=== PATIENT | male | born 1980 | race Caucasian/White ===

== ENCOUNTER 2021-02-25 10:40 | Emergency (ER) | payer OTHER, SELFPAY ==
[2021-02-25 12:04] VITALS: BP 114/64; PULSE 85; RESP 18; TEMP 36.6; BMI 25.0
--- NOTE | 2021-02-25 14:11 | ED.GENADULT ---
HPI - General Adult General Chief complaint: Wound/Laceration Stated complaint: Abcess Time Seen by Provider: 02/25/21 13:39 Source: patient Mode of arrival: ambulatory Limitations: no limitations History of Present Illness HPI narrative: 40-year-old male who presents emergency department for evaluation of an abscess to his left forearm. The patient uses injection heroin/cocaine. He states that he injects 100 bags per day. He states that he has been having difficulty finding vein and will use that he has been missing and injecting under his skin. The patient is concerned that he has an abscess to his left forearm. He also has multiple areas on his arms that are hard and painful. He states that he is feeling fatigued. He denied fever, chills, nausea, vomiting, chest pain or shortness of breath. Patient states these had able to take oral antibiotics for his skin infections in the past. He also states that he was admitted 1 time in the past for a skin infection. Related Data Previous Rx's Medication Instructions Recorded cefadroxil 1 gram tablet 1,000 mg PO BID 7 Days #14 tab 02/25/21 doxycycline hyclate 100 mg tablet 100 mg PO Q12H 7 Days #14 tab 02/25/21 Allergies Allergy/AdvReac Type Severity Reaction Status Date / Time No Known Allergies Allergy Unverified 04/04/20 15:10 [No Known Allergies*] Review of Systems Review of Systems: Yes all other systems are reviewed and are negative [facility] Past Medical History [facility] Narrative: Past medical history: None. Past surgical history: None. Social history: He does smoke cigarettes, 1/2 pack of cigarettes per day times many years. He denies alcohol use. The patient states that he injects heroin and cocaine daily. He estimates that he injects 100 bags of heroin per day (10 bundles of 10). Medical History Patient denies medical problems Social History Social History Advance Directives: No Advance Directives Information Provided: No Physical Exam Vital Signs: Vital Signs: Last Vital Signs Temp 98 F 02/25/21 12:04 Pulse 85 02/25/21 12:04 Resp 18 02/25/21 12:04 BP 114/64 02/25/21 12:04 Body Mass Index 25.0 Const: Other: Patient is pleasant and cooperative, does not appear to be in distress, when left alone does fall asleep but is easily arousable. HENMT: Head: Yes normal to inspection, Yes normocephalic and Yes atraumatic Ears: external ears normal General nose exam: Normal external nose present Face and sinus: Yes normal facial exam Mouth: Normal oral and palatal mucosa present Throat: Yes posterior oropharynx normal Eyes: General: appearance normal, both eyes and all related structures Pupils: Equal, round and reactive pupils present Neck: Neck: Yes normal visual inspection, Yes no lymphadenopathy, Yes trachea midline and Yes supple Chest: Chest palpation & inspection: normal inspection of the chest and normal palpation of entire chest wall Resp: Effort & Inspection: normal respiratory effort and able to speak in complete sentences Auscultation: clear to auscultation bilaterally Cardio: Rate: regular rate Rhythm: regular rhythm Heart sounds: S1 normal heart sound present, S2 normal heart sound present and no murmurs GI: Inspection: Yes normal to inspection Palpation (GI): Soft to palpation, nontender and no guarding Auscultation: normal bowel sounds : General: Yes no CVA tenderness Back/Spine/Pelvis: Back: no CVA tenderness Skin: Other: The patient has an area erythema with a pustule on the left forearm with a area of erythema measuring approximately 3 x 3 cm, the area is indurated and only slightly flocculence, patient has multiple areas on both arms that are indurated without erythema or increased warmth. General skin exam: no rashes or lesions noted Neuro: Cranial nerves: Yes CN's II-XII intact bilaterally and Yes Equal, round and reactive pupils present Cognition (Neuro): normal cognition Motor exam (neuro): 5/5 motor strength present throughout Extrem: Other: Both left and right extremities appear to be swollen with no significant pitting edema, this may be chronic secondary to loss of venous drainage from his injection use. General: Yes full ROM Psych: Appearance: grossly normal Speech and movement: Normal speech and movement present Affect: normal affect Attitude: cooperative Thought process: Normal thought process present Thought content: Normal thought content present Course Course Course Narrative: 40-year-old male with history of opiate and cocaine use disorder who injects approximately 100 bags of heroin per day who presents emergency department for evaluation of possible abscess to left forearm. Patient denied fever chills. He states he has been feeling fatigued. Physical examination did reveal an area on his left forearm of erythema with increased warmth and a pustule. There is some slight flocculence to this area but it is mainly indurated. He also has multiple areas on both arms that are indurated without any erythema at various injection sites. Patient's vital signs were normal. My impression is that the patient has a small abscess to his left arm and I did discuss the incision and drainage procedure and he agreed. As expected, only a small amount of purulent material was expressed from the incision site and there was a very small abscess cavity. I think that the patient has been skin popping and he has multiple areas that are scarred but not infected. The patient started on doxycycline 100 mg twice a day for 7 days and Duricef 1000 mg twice a day for 7 days. The patient does not want to talk to a crisis counselor about his drug use and is not interested in getting into a maintenance program. The patient will be discharged with a intranasal Narcan rescue package. The patient was given verbal and printed instructions prior to discharge. The patient was advised to follow-up with his PCP in 2 days and to return to the emergency department if his symptoms get worse or if he develops any new symptoms that are concerning to him. Discharge Plan Discharge Clinical Impression: Abscess, Cellulitis of forearm, left, Opiate addiction, Cocaine use disorder Patient Disposition: Home, Self-Care Instructions: Cellulitis (ED), Abscess Incision and Drainage (DC) Additional Instructions: Abscess Discharge Instructions You were treated today for an abscess( collection of pus under the skin). The abscess was cut, the pus was drained out and the abscess and the wound was packed with a piece of gauze packing. Change the outside gauze daily or if it gets soaked through with pus. Try not to pull out the gauze packing when you remove the outside gauze. The gauze packing needs to stay in place for 4 days to help the pus drain out of the abscess. If the gauze packing falls out before 4 days and it DOES NOT need to be replaced. Take Duricef (cefadroxil) 1000 mg pills, one pill 2 times a day for 7 days. This is an antibiotic that will help fight the infection. Take doxycycline 100 mg, 1 pill 2 times a day for 7 days. This is an antibiotic that will help fight infection. Take ibuprofen 200 mg pills, 3 pills every 6 hours as needed for pain. Take Tylenol (acetaminophen) 500 mg pills, 2 pills every 4 to 6 hours as needed for pain. Apply warm compresses or a heating pad on low for 15 minutes 4-6 times a day. This increases the blood flow to the area and helps the healing process. Watch for signs of worsening infection which include fever, increased pain, increased redness or increased swelling, red lines traveling away from the wound. IF you think the infection is getting worse or if you develop any new symptoms that are concerning you, then return to the Emergency Department or follow up with your doctor for a recheck. Please follow up with your doctor in 2 days for a recheck. I am also sending you home with a intranasal Narcan rescue pack. If your wound to continue to use IV heroin then you should make sure that there is someone sober and who is not using drugs that can monitor to you and watch you closely. This person can then administer intranasal Narcan if you pass out and stop breathing. Prescriptions: New doxycycline hyclate 100 mg tablet 100 mg PO Q12H 7 Days Qty: 14 RF: 0 cefadroxil 1 gram tablet 1,000 mg PO BID 7 Days Qty: 14 RF: 0
[2021-02-25] MEDS: cephALEXin 500 MG CAPSULE PO (14:53)
[2021-02-25 15:53] VITALS: BP 96/56; PULSE 55; RESP 16; TEMP 37.1; O2SAT 98
[2021-02-25 15:55] VITALS: BP 109/68
[2021-02-25] MEDS: Naloxone HCl Nasal TAKE HOME 4 MG SPRAY NOSTRILALT (15:56)
== END 2021-02-25 16:14 | disposition home or self-care (01) ==
PROVIDERS: Emergency Provider Emergency Medicine Emergency Medical Services
DX: L02.414 Cutaneous abscess of left upper limb (principal); L03.114 Cellulitis of left upper limb; F11.20 Opioid dependence, uncomplicated; F14.20 Cocaine dependence, uncomplicated
CPT/HCPCS: 10060; 87071; 87147; 87186; 87205; 99284

== ENCOUNTER 2021-10-04 12:16 | Emergency (ER) | payer OTHER, SELFPAY ==
[2021-10-04 12:17] VITALS: BP 119/73; PULSE 109; RESP 18; TEMP 37.2; O2SAT 95; BMI 27.3
--- NOTE | 2021-10-04 12:24 | ED.GENADULT ---
HPI - General Adult General Chief complaint: General Medical Stated complaint: med refill Time Seen by Provider: 10/04/21 12:24 Source: patient Mode of arrival: ambulatory Limitations: no limitations History of Present Illness HPI narrative: Patient is a 41 year old male presenting to the emergency department today requesting his daily dose of Methadone. Patient states that he didn't realize that the Methadone clinic would be closed due to the road race and he just needs his daily dose. Patient denies any dizziness, lightheadedness, abdominal pain, nausea, vomiting, fever, chills, blurry vision, double vision, loss of vision, chest pain, difficulty breathing, shortness of breath, back pain, night sweats, pain with urination, increased urinary frequency, increased urinary urgency, blood in his urine or stool, syncope or a near syncopal episode, recent trauma or falls, bowel incontinence, bladder incontinence, bowel retention, bladder retention, or any other complaints at this time. Related Data Previous Rx's Medication Instructions Recorded cefadroxil 1 gram tablet 1,000 mg PO BID 7 Days #14 tab 02/25/21 doxycycline hyclate 100 mg tablet 100 mg PO Q12H 7 Days #14 tab 02/25/21 Allergies Allergy/AdvReac Type Severity Reaction Status Date / Time No Known Allergies Allergy Unverified 04/04/20 15:10 [No Known Allergies*] Review of Systems Constitutional: Constitutional: Reports no additional constitutional complaints, Denies chills, Denies fever(s) and Denies night sweats Eyes: Eyes: Reports no additional eye complaints, Denies blurry vision, Denies change in vision, Denies diplopia, Denies eye discharge, Denies loss of vision and Denies eye pain ENT: Denies dizziness Cardiovascular: Cardiovascular: Reports no additional cardiovascular complaints, Denies chest pain, Denies lightheadedness, Denies Loss of Consciousness and Denies dyspnea Respiratory: Respiratory: Reports no additional respiratory complaints and Denies dyspnea Gastrointestinal: Gastrointestinal: Reports no additional gastrointestinal complaints, Denies abdominal pain, Denies melena, Denies hematochezia, Denies change in bowel habits and Denies change in stool character Genitourinary: Genitourinary: Reports no additional male genitourinary complaints, Denies hematuria, Denies oliguria, Denies difficulty urinating, Denies dysuria, Denies urinary frequency, Denies urinary hesitancy, Denies urinary incontinence and Denies urinary urgency Musculoskeletal: Musculoskeletal: Reports no additional musculoskeletal complaints, Denies numbness and Denies tingling Neurologic: Denies dizziness, Denies loss of vision, Denies numbness and Denies tingling Psychiatric: Psychiatric: Reports no additional psychiatric complaints Endocrine: Endocrine: Reports no additional endocrine complaints Hematologic/Lymphatic: Hematologic/Lymphatic: Reports no additional hematologic/lymphatic complaints Allergic/Immunologic: Allergic/Immunologic: Reports no additional allergic/immunologic complaints [facility] Past Medical History Attestation statement: The following information was validated with the patient. Source: old records reviewed Medical History Patient denies medical problems Social History Social History Advance Directives: No Advance Directives Information Provided: No Physical Exam ED Vital Signs: Vital Signs - 24 hr 10/04/21 12:17 Temperature 99.0 F Pulse Rate 109 H Respiratory Rate 18 Blood Pressure 119/73 Pulse Oximetry 95 BMI result Body Mass Index 27.3 Const General: cooperative, no acute distress, alert and awake Nutritional Appearance: well nourished Orientation/consciousness: patient oriented x3 Limitations: no limitations HENMT Head: Yes normal to inspection and Yes atraumatic Ears: hearing grossly normal bilaterally and external ears normal General nose exam: Normal external nose present, no nasal discharge noted and no epistaxis Face and sinus: Yes normal facial exam, No abrasion and No laceration Mouth: Normal oral and palatal mucosa present, no drooling and no muffled voice Eyes General: appearance normal, both eyes and all related structures Periorbital: periorbital findings normal Eyelids: Yes eyelids normal Conjunctivae: conjunctivae normal Pupils: Equal, round and reactive pupils present EOM: EOMs intact bilaterally Neck Neck: Yes normal visual inspection, Yes full ROM and Yes no lymphadenopathy Chest Chest palpation & inspection: normal inspection of the chest Resp Effort & Inspection: normal respiratory effort and able to speak in complete sentences Auscultation: clear to auscultation bilaterally Cardio Rate: regular rate Rhythm: regular rhythm GI Inspection: Yes normal to inspection Neuro General: patient oriented x3 and moves all extremities Cranial nerves: Yes Equal, round and reactive pupils present Cognition (Neuro): normal cognition Motor exam (neuro): 5/5 motor strength present throughout Sensory Exam: Normal double simultaneous stimulation for sensation Coordination: [id number] test normal Extrem General: Yes normal to inspection, Yes full ROM and Yes capillary refill normal Psych Appearance: grossly normal Mental Status: mental status grossly normal Affect: normal affect Attitude: cooperative Thought process: Normal thought process present Thought content: Normal thought content present Insight: Good insight present (Psych) Medical Decision Making MDM Narrative Medical decision making narrative: Patient is a 41 year old male presenting to the emergency department today requesting his daily methadone dose. Patient's physical exam was unremarkable. I explained my physical exam findings to the patient. I answered all questions asked by the patient. Patient received his appropriate dose of methadone. I stressed the importance of the patient taking his medication as prescribed. I stressed the importance of the patient following up with his primary care provider. I stressed the importance of the patient returning to the emergency department immediately if he were to develop any dizziness, shortness of breath, difficulty breathing, chest pain, blurry vision, loss of vision, nausea, vomiting, abdominal pain, fever, chills, back pain, or any other complaints. Patientverbalized agreement and understanding with this treatment plan and discharge. Differential Diagnosis Differential Diagnosis: opiate abuse, methadone use, medication refill Medical Records Medical records reviewed: Yes I reviewed the patient's medical records. Discharge Plan Discharge Clinical Impression: Methadone use Patient Disposition: Home, Self-Care Instructions: Methadone (By mouth) Additional Instructions: Follow up with your primary care provider. Return to the emergency department immediately if you develop any dizziness, shortness of breath, difficulty breathing, chest pain, blurry vision, loss of vision, nausea, vomiting, abdominal pain, fever, chills, back pain, or any other complaints. Prescriptions: No Action doxycycline hyclate 100 mg tablet 100 mg PO Q12H 7 Days Qty: 14 0RF cefadroxil 1 gram tablet 1,000 mg PO BID 7 Days Qty: 14 0RF Referrals: Physician,None [Primary Care Provider] - 2 days (Follow up with your PCP. ) Interventions: ED Discharge Assessment Last Done: 10/04/21 13:51 Discharge Date/Time: 10/04/21 13:52 Print Language: Vietnamese
[2021-10-04] MEDS: methADONE HCl 20 MG/2 ML ORAL.CONC PO (13:41)
== END 2021-10-04 13:52 | disposition home or self-care (01) ==
PROVIDERS: Emergency Provider Emergency Medicine Emergency Medical Services
DX: F11.20 Opioid dependence, uncomplicated (principal)
CPT/HCPCS: 99283

== ENCOUNTER 2021-10-12 23:10 | Emergency (ER) | payer OTHER, SELFPAY ==
--- NOTE | ~2021-10-12 | XR_ITS ---
EXAMINATION: XR CHEST CLINICAL INFORMATION: chest pain, shortness of breath, rule out pneumon COMPARISON: None TECHNIQUE: Frontal view of the chest was obtained. FINDINGS: Linear opacity in the right infrahilar region likely correspond atelectasis. Otherwise, no consolidation, pneumothorax, or pleural effusion. Cardiac and mediastinal contours are normal. Normal pulmonary vasculature. No acute osseous findings. Degenerative spondylosis in the lumbar spine. XR/XR chest 1V IMPRESSION: Linear opacity in the right infrahilar region likely correspond to atelectasis. Airspace consolidation is felt to be less likely.
[2021-10-12 23:29] VITALS: BP 138/78; PULSE 106; RESP 16; TEMP 38.1; O2SAT 96; BMI 25.0
--- NOTE | 2021-10-13 01:04 | ED.GENADULT ---
HPI - General Adult General Chief complaint: Skin/Abscess/Foreign Body Stated complaint: cellulitis? Time Seen by Provider: 10/13/21 00:42 Source: patient Mode of arrival: ambulatory Limitations: no limitations History of Present Illness HPI narrative: 41-year-old male who presents emergency department for evaluation chest pain, shortness of breath, cough, weakness, fatigue. The patient states he has been sick for 2 days. He states he has been feeling hot and cold but did not take his temperature. He states that he is feeling very weak and fatigued. Patient is complaining of left-sided chest pain. He points to his left breast when asked to localize the pain. The pain is and intermittent,sharp pain which is worse with breathing. the pain is moderate to severe in intensity States that he has had a cough which is nonproductive. He has had nausea with no vomiting. the patient has a history of injection drug use and he states that he last injected into his left wrist area 1 week prior. He states that he injected heroin and cocaine. The patient states that he does take methadone daily but he believes the dose is not high enough. The patient states that he was admitted to [facility] in [place] on 09/02/2021 for cellulitis and MRSA bacteremia. He states that he was treated with vancomycin until 10/02/2021. States that he was supposed to follow up with infectious disease provider at [facility] but he never cap this appointment. in reviewing the record from [facility], the patient had surveillance cultures on 09/04/2021 which were negative. MD complaint: left anterior chest pain Onset (ago): day(s) (2) Location: chest ( left anterior chest) Radiation: non-radiation Severity: moderate Severity scale (1-10): 6 Quality: stabbing and sharp Pain Consistency: intermittent Relieving factors: none Exacerbating factors: movement and other ( breathing) Associated symptoms: cough, fever/chills and nausea/vomiting Treatments prior to arrival: none Related Data Previous Rx's Medication Instructions Recorded cefadroxil 1 gram tablet 1,000 mg PO BID 7 Days #14 tab 02/25/21 doxycycline hyclate 100 mg tablet 100 mg PO Q12H 7 Days #14 tab 02/25/21 cephalexin 500 mg capsule 500 mg PO QID 7 Days #28 cap 10/13/21 doxycycline hyclate 100 mg tablet 100 mg PO Q12H 7 Days #14 tab 10/13/21 ibuprofen 600 mg tablet 600 mg PO Q6H PRN #30 tab 10/13/21 Allergies Allergy/AdvReac Type Severity Reaction Status Date / Time No Known Allergies Allergy Verified 10/12/21 23:38 [No Known Allergies*] Review of Systems Review of Systems: Yes all other systems are reviewed and are negative [facility] Past Medical History [facility] Narrative: past medical history: 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 Social history: The patient does smoke cigarettes. He denies alcohol use. He does admit to using injection drugs, he last used heroin and cocaine 1 week prior, injected into his left wrist area. Medical History Patient denies medical problems Social History Social History Advance Directives: No Advance Directives Information Provided: Yes Physical Exam ED Vital Signs: Vital Signs - 24 hr 10/12/21 23:29 Temperature 100.5 F H Pulse Rate 106 H Respiratory Rate 16 Blood Pressure 138/78 Pulse Oximetry 96 BMI result Body Mass Index 25.0 Const General: cooperative and no acute distress Orientation/consciousness: oriented to person and oriented to place Limitations: no limitations [facility] Head: Yes normal to inspection, Yes normocephalic and Yes atraumatic Ears: external ears normal General nose exam: Normal external nose present Face and sinus: Yes normal facial exam Mouth: Normal oral and palatal mucosa present Throat: Yes posterior oropharynx normal Eyes General: appearance normal, both eyes and all related structures Pupils: Equal, round and reactive pupils present Neck Neck: Yes normal visual inspection, Yes no lymphadenopathy, Yes trachea midline and Yes supple Chest Chest palpation & inspection: normal inspection of the chest and normal palpation of entire chest wall Resp Effort & Inspection: normal respiratory effort and able to speak in complete sentences Auscultation: clear to auscultation bilaterally Cardio Rate: regular rate Rhythm: regular rhythm Heart sounds: S1 normal heart sound present, S2 normal heart sound present and no murmurs GI Inspection: Yes normal to inspection Palpation (GI): Soft to palpation, nontender and no guarding Auscultation: normal bowel sounds General: Yes no CVA tenderness Back/Spine/Pelvis Back: no CVA tenderness Skin General skin exam: no rashes or lesions noted Neuro General: oriented to person and oriented to place Cranial nerves: Yes CN's II-XII intact bilaterally and Yes Equal, round and reactive pupils present Cognition (Neuro): normal cognition Motor exam (neuro): 5/5 motor strength present throughout Extrem Other: The patient's hands and forearms appear to be swollen secondary to chronic venous stasis disease from using injection drugs, there are multiple scars consistent with old abscesses, there is no increased warmth or obvious abscess at this time, patient's strength is symmetric Psych Appearance: grossly normal Speech and movement: Normal speech and movement present Affect: normal affect Attitude: cooperative Thought process: Normal thought process present Thought content: Normal thought content present Course Course Course Narrative: 41-year-old male with history of injection use disorder, last injected heroin and cocaine into his left wrist area, with recent admission to [facility] in [place] on 09/24/2021 for MRSA cellulitis infection treated with vancomycin IV x2 weeks, patient noncompliant with follow-up who presents emergency department for evaluation of subjective fever, chills, weakness, shortness of breath, left-sided pleuritic chest pain nausea and fatigue. Vital signs revealed a temperature of 100.5 degrees F and tachycardia with a pulse of 106. The patient meets SIRS criteria. I did order CBC, CMP, lactate, troponin, blood cultures x2, chest x-ray. 0236: Laboratory evaluation: CBC was normal. AST elevated 71, ALT elevated 45 troponin below detectable limits. Chest x-ray revealed atelectasis at Right infrahilar region otherwise u nremarkab le. COVID-19/influenza/ RSV were negative. At this time, the patient's workup is relatively unremarkable. The patient is at high risk for bacteremia given his injection drug use. the patient did not get any relief with IV Toradol. At this time I do not have a clear etiology for his chest pain or his fever. I will start him cephalexin doxycycline for possible cellulitis. The patient will be discharged home with instructions on her seen advised to take Tylenol and ibuprofen for his pain. Medical Decision Making Lab Data Result diagrams: 10/13/21 01:30 10/13/21 01:30 Labs: Lab Results 10/13/21 10/13/21 10/13/21 Range/Units 01:29 01:30 01:30 WBC 7.1 (4.8-10.8) X10*3/uL RBC 3.98 L (4.60-5.80) X10*6/uL Hgb 12.2 L (14.0-18.0) g/dl Hct 37.4 L (42.0-52.0) % MCV 94.0 (80.0-98.0) fL MCH 30.7 (27.0-33.0) pg MCHC 32.6 (31.0-36.0) g/dl RDW 14.3 (11.0-16.0) % Plt Count 231 (160-400) X10*3/uL MPV 9.7 (9.4-12.4) fL Immature Gran % (Auto) 0.1 (0.0-0.4) % Neut % (Auto) 54.5 (45-73) % Lymph % (Auto) 25.8 (20-40) % [place] % (Auto) 16.6 H (2-11) % Eos % (Auto) 2.4 (0-4) % Baso % (Auto) 0.6 (0-2) % Lymph # (Auto) 1.8 (1.2-4.9) X10*3/uL [place] # (Auto) 1.2 (0.1-1.2) X10*3/uL Eos # (Auto) 0.2 (0.0-0.4) X10*3/uL Baso # (Auto) 0.0 (0.0-0.2) X10*3/uL Abs Immat Gran (auto) 0.01 (0.00-0.03) X10*3/uL Absolute Neuts (auto) 3.8 (2.0-8.3) x10*3/uL Absolute Nucleated RBC 0.000 (0.0-0.012) X10*3/uL Nucleated RBC % (auto) 0.0 (0.0-0.2) /100WBC Sodium (135-145) mmol/L Potassium (3.3-5.1) mmol/L Chloride (96-108) mmol/L Carbon Dioxide (22-29) mmol/L Anion Gap (12-20) BUN (9-16) mg/dL Creatinine (0.5-1.4) mg/dL Estim Creat Clear Calc Estimated GFR Random Glucose (60-115) mg/dL Lactic Acid (0.5-2.0) mmol/L Calcium (8.4-10.2) mg/dL Total Bilirubin (0.0-1.0) mg/dL AST (5-37) U/L ALT (0-40) U/L Alkaline Phosphatase (39-117) U/L Troponin I High Sens < 3.5 (<3.5-35.0) ng/L C-Reactive Protein (< or = 0.50) mg/dL Total Protein (6.5-8.0) g/dL Albumin (3.5-5.0) g/dL Lipase (8-78) U/L Ethyl Alcohol mg/dL Influenza Type A (PCR) NEGATIVE (Negative) Influenza Type B (PCR) NEGATIVE (Negative) RSV RNA Qual (PCR) NEGATIVE (Negative) SARS-CoV-2 RNA (RT-PCR) NEGATIVE (Negative) 10/13/21 10/13/21 10/13/21 Range/Units 01:30 01:30 01:30 WBC (4.8-10.8) X10*3/uL RBC (4.60-5.80) X10*6/uL Hgb (14.0-18.0) g/dl Hct (42.0-52.0) % MCV (80.0-98.0) fL MCH (27.0-33.0) pg MCHC (31.0-36.0) g/dl RDW (11.0-16.0) % Plt Count (160-400) X10*3/uL MPV (9.4-12.4) fL Immature Gran % (Auto) (0.0-0.4) % Neut % (Auto) (45-73) % Lymph % (Auto) (20-40) % [place] % (Auto) (2-11) % Eos % (Auto) (0-4) % Baso % (Auto) (0-2) % Lymph # (Auto) (1.2-4.9) X10*3/uL [place] # (Auto) (0.1-1.2) X10*3/uL Eos # (Auto) (0.0-0.4) X10*3/uL Baso # (Auto) (0.0-0.2) X10*3/uL Abs Immat Gran (auto) (0.00-0.03) X10*3/uL Absolute Neuts (auto) (2.0-8.3) x10*3/uL Absolute Nucleated RBC (0.0-0.012) X10*3/uL Nucleated RBC % (auto) (0.0-0.2) /100WBC Sodium 136 (135-145) mmol/L Potassium 4.0 (3.3-5.1) mmol/L Chloride 105 (96-108) mmol/L Carbon Dioxide 22 (22-29) mmol/L Anion Gap 13 (12-20) BUN 14 (9-16) mg/dL Creatinine 0.94 (0.5-1.4) mg/dL Estim Creat Clear Calc 94.7 Estimated GFR > 60 Random Glucose 93 (60-115) mg/dL Lactic Acid 0.7 (0.5-2.0) mmol/L Calcium 9.3 (8.4-10.2) mg/dL Total Bilirubin 1.0 (0.0-1.0) mg/dL AST 71 H (5-37) U/L ALT 45 H (0-40) U/L Alkaline Phosphatase 85 (39-117) U/L Troponin I High Sens (<3.5-35.0) ng/L C-Reactive Protein 0.36 (< or = 0.50) mg/dL Total Protein 7.0 (6.5-8.0) g/dL Albumin 3.8 (3.5-5.0) g/dL Lipase 8 (8-78) U/L Ethyl Alcohol < 10 mg/dL Influenza Type A (PCR) (Negative) Influenza Type B (PCR) (Negative) RSV RNA Qual (PCR) (Negative) SARS-CoV-2 RNA (RT-PCR) (Negative) Discharge Plan Discharge Clinical Impression: Cellulitis, Fever, Heroin abuse, Cocaine abuse Chest pain Qualifiers: Chest pain type: unspecified Qualified Code(s): R07.9 - Chest pain, unspecified Patient Disposition: Home, Self-Care Prescriptions: New cephalexin 500 mg capsule 500 mg PO QID 7 Days Qty: 28 0RF doxycycline hyclate 100 mg tablet 100 mg PO Q12H 7 Days Qty: 14 0RF ibuprofen 600 mg tablet 600 mg PO Q6H PRN (Reason: pain) Qty: 30 0RF No Action doxycycline hyclate 100 mg tablet 100 mg PO Q12H 7 Days Qty: 14 0RF cefadroxil 1 gram tablet 1,000 mg PO BID 7 Days Qty: 14 0RF
--- NOTE | 2021-10-13 01:05 | ECG_ITS ---
Test Reason : WEAKNESS Blood Pressure : / mmHG Vent. Rate : 056 BPM Atrial Rate : 056 BPM P-R Int : 134 ms QRS Dur : 090 ms QT Int : 430 ms P-R-T Axes : 049 078 019 degrees QTc Int : 414 ms Sinus bradycardia Otherwise normal ECG No previous ECGs available Referred By: Lorenzo Rosenthal Electronically Signed By:JACINDA MORRIS
[2021-10-13 01:34] LABS: MANUAL DIFF FLAG NO
[2021-10-13 01:36] LABS: Basophils Percent Auto 0.6 % (0-2); Eosinophils Absolute Auto 0.2 X10*3/uL (0.0-0.4); Eosinophils Percent Auto 2.4 % (0-4); Hematocrit 37.4 % (42.0-52.0); Hemoglobin 12.2 g/dl (14.0-18.0); Imm Gran Abs Auto 0.01 X10*3/uL (0.00-0.03); Imm Gran Pct Auto 0.1 % (0.0-0.4); Lymphocytes Absolute Auto 1.8 X10*3/uL (1.2-4.9); Lymphocytes Percent Auto 25.8 % (20-40); Mean Corpuscular HGB Conc 32.6 g/dl (31.0-36.0); Mean Corpuscular Hemoglobin 30.7 pg (27.0-33.0); Mean Platelet Volume 9.7 fL (9.4-12.4); Monocytes Absolute Auto 1.2 X10*3/uL (0.1-1.2); Monocytes Percent Auto 16.6 % (2-11); Neutrophils Absolute Auto 3.8 x10*3/uL (2.0-8.3); Neutrophils Percent Auto 54.5 % (45-73); Platelet Count 231 X10*3/uL (160-400); Red Blood Count 3.98 X10*6/uL (4.60-5.80); Red Cell Distribution Width 14.3 % (11.0-16.0); White Blood Count 7.1 X10*3/uL (4.8-10.8)
[2021-10-13] MEDS: 0.9 % Sodium Chloride 1,000 ML 999 ML IV (01:37)
[2021-10-13] MEDS: Ketorolac Tromethamine 15 MG/ML VIAL IVPUSH (01:43)
[2021-10-13] MEDS: ondansetron HCL 4 MG/2 ML VIAL IVPUSH (01:44)
[2021-10-13 01:46] LABS: Lactic Acid 0.7 mmol/L (0.5-2.0)
[2021-10-13 01:48] LABS: Ethanol < 10 mg/dL
[2021-10-13 01:52] LABS: Alanine Aminotransferase 45 U/L (0-40); Albumin Level 3.8 g/dL (3.5-5.0); Alkaline Phosphatase 85 U/L (39-117); Anion Gap 13 (12-20); Aspartate Amino Transferase 71 U/L (5-37); Blood Urea Nitrogen 14 mg/dL (9-16); C Reactive Protein 0.36 mg/dL (< or = 0.50); Calcium 9.3 mg/dL (8.4-10.2); Carbon Dioxide 22 mmol/L (22-29); Chloride 105 mmol/L (96-108); Creatinine Clr Calc Pharmacy 94.7; Estimated Glomerular Filt Rate > 60; Glucose Random 93 mg/dL (60-115); Lipase 8 U/L (8-78); Sodium 136 mmol/L (135-145)
[2021-10-13 01:55] LABS: Troponin-I High Sensitivity < 3.5 ng/L (<3.5-35.0)
[2021-10-13 02:20] LABS: Influenza A PCR NEGATIVE (Negative); Influenza B PCR NEGATIVE (Negative); Resp Syncy Virus RNA Qual PCR NEGATIVE (Negative); SARS COV2 PCR INHOUSE NEGATIVE (Negative)
[2021-10-13] MEDS: Ketorolac Tromethamine 15 MG/ML VIAL 30 MG IVPUSH (03:02)
[2021-10-13] MEDS: cephALEXin 500 MG CAPSULE PO (03:03)
== END 2021-10-13 03:55 | disposition home or self-care (01) ==
PROVIDERS: Emergency Provider Emergency Medicine Emergency Medical Services; PCP Internal Medicine
DX: L03.114 Cellulitis of left upper limb (principal); R07.9 Chest pain, unspecified; R50.9 Fever, unspecified; R06.02 Shortness of breath; R05.9 Cough, unspecified; F11.19 Opioid abuse with unspecified opioid-induced disorder; F14.19 Cocaine abuse with unspecified cocaine-induced disorder; Z71.51 Drug abuse counseling and surveillance of drug abuser; Z20.822 Contact with and (suspected) exposure to COVID-19; Z79.899 Other long term (current) drug therapy
CPT/HCPCS: 0241U; 36415; 71045; 80053; 82077; 83605; 83690; 84484; 85025; 86140; 87040; 87147; 87205; 93005; 96374; 96376; 99284; J1885; J2405

== ENCOUNTER 2021-10-14 12:03 | Emergency (ER) | payer OTHER, SELFPAY ==
--- NOTE | ~2021-10-14 | XR_ITS ---
EXAMINATION: XR CHEST CLINICAL INFORMATION: Cough and shortness of breath and weakness COMPARISON: Previous chest x-ray from yesterday TECHNIQUE: Frontal view of the chest was obtained. FINDINGS: The cardiac silhouette does not appear enlarged. Hilar and mediastinal contours are unremarkable. The lungs are clear.. There is no pleural effusion or pneumothorax. There is curvature of the lower thoracic spine to the right. XR/XR chest 1V IMPRESSION: Unremarkable exam.
[2021-10-14 13:47] VITALS: BP 95/67; PULSE 62; RESP 18; TEMP 37.3; O2SAT 96; BMI 29.7
--- NOTE | 2021-10-14 16:47 | ED.RECABL ---
HPI - Recheck/Abnormal Lab/Rx General Chief Complaint: Recheck/Abnormal Lab/Rx Stated Complaint: infection in blood Time Seen by Provider: 10/14/21 12:40 Source: patient Mode of arrival: ambulatory Limitations: no limitations History of Present Illness HPI narrative: Patient was seen here yesterday for questionable cellulitis with history of MRSA bacteremia fully treated with IV antibiotics last month repeat blood cultures were negative on 09/04 today 1 of 2 blood culture showed Gram-positive cocci final report is pending no fever no leukocytosis patient was called as he said he is not feeling good with multiple complaints patient with nonspecific complaints moderate to get admitted Related Data Previous Rx's Medication Instructions Recorded cefadroxil 1 gram tablet 1,000 mg PO BID 7 Days #14 tab 02/25/21 doxycycline hyclate 100 mg tablet 100 mg PO Q12H 7 Days #14 tab 02/25/21 cephalexin 500 mg capsule 500 mg PO QID 7 Days #28 cap 10/13/21 doxycycline hyclate 100 mg tablet 100 mg PO Q12H 7 Days #14 tab 10/13/21 ibuprofen 600 mg tablet 600 mg PO Q6H PRN #30 tab 10/13/21 Allergies Allergy/AdvReac Type Severity Reaction Status Date / Time No Known Allergies Allergy Verified 10/12/21 23:38 [No Known Allergies*] Review of Systems Review of Systems: Yes all other systems are reviewed and are negative PMFSH Past Medical History Medical History Patient denies medical problems Social History Social History Advance Directives: No Advance Directives Information Provided: No Physical Exam Vital Signs: Vital Signs: Last Vital Signs Temp 99.1 F 10/14/21 13:47 Pulse 62 10/14/21 13:47 Resp 18 10/14/21 13:47 BP 95/67 10/14/21 13:47 Pulse Ox 96 10/14/21 13:47 BMI result Body Mass Index 29.7 Appearance: Alert. Oriented X3. No acute distress. ENT: Pharynx normal. Oral Mucosa moist Neck: Normal inspection. Neck supple. CVS: Normal heart rate and rhythm. Pulses normal. Respiratory: No respiratory distress. Equal air entry bilateral, no wheezing/rales/rhonchi Abdomen: Soft and nontender. Bowel sounds are present, no mass palpable, no CVA tenderness Skin: Skin warm and dry. Normal skin color. Normal skin turgor. Extremities: No lower extremity edema. No calf tenderness healing scar dubois of both upper extremities, no signs of cellulitis Neuro: Oriented X 3. MDM - Recheck/Abnormal Lab/Rx MDM Narrative Medical decision making narrative: Patient clinically not septic no signs of cellulitis this time , blood cultures likely contaminated patient advise to continue p.o. antibiotics, will call him in case final culture comes positive. Also patient advised to report to the ER if high fever 1705:Patient refusing labs or vitals at this time Discharge Plan Discharge Clinical Impression: Positive blood cultures Patient Disposition: Left Against Medical Advice Instructions: Bacteremia (ED) Additional Instructions: Your out of 2 blood culture 1 is positive for Gram-positive cocci likely contaminant Final report is pending Continue antibiotics as prescribed yesterday If you have high fever or blood cultures comes positive will call you Your refuse repeat blood draw or vitals in the ER for further care Prescriptions: No Action doxycycline hyclate 100 mg tablet 100 mg PO Q12H 7 Days Qty: 14 0RF cefadroxil 1 gram tablet 1,000 mg PO BID 7 Days Qty: 14 0RF cephalexin 500 mg capsule 500 mg PO QID 7 Days Qty: 28 0RF doxycycline hyclate 100 mg tablet 100 mg PO Q12H 7 Days Qty: 14 0RF ibuprofen 600 mg tablet 600 mg PO Q6H PRN (Reason: pain) Qty: 30 0RF Interventions: ED Discharge Assessment Last Done: 10/14/21 17:09 Discharge Date/Time: 10/14/21 17:10
== END 2021-10-14 17:10 | disposition left against medical advice (07) ==
PROVIDERS: Emergency Provider Internal Medicine; PCP Internal Medicine
DX: R78.81 Bacteremia (principal); Z79.899 Other long term (current) drug therapy
CPT/HCPCS: 71045; 99282; 99283

== ENCOUNTER 2021-10-31 02:59 | Emergency (ER) | payer OTHER, SELFPAY ==
[2021-10-31 03:13] VITALS: BP 107/49; PULSE 81; RESP 20; TEMP 37.2; O2SAT 94; BMI 25.8
[2021-10-31] MEDS: Ondansetron ODT 4 MG TAB.RAPDIS TRANSLINGU (03:23)
[2021-10-31 03:26] VITALS: BP 93/47; PULSE 71; RESP 18; TEMP 36.6; O2SAT 95
--- NOTE | 2021-10-31 03:36 | PC.NURSE ---
pt has extensive bilateral arm scar tissue/ healing skin as well as an abcess on left bicep and rt forearm. c/o pain at site and tenderness. states his last IVDA was 2 days ago. reports feeling achey, nausea with dry heaves, and FORD.
[2021-10-31 03:54] LABS: COVID-19 Test Negative (Negative)
--- NOTE | 2021-10-31 04:15 | PC.NURSE ---
pt has a white residue on his right thumb, pt asked about this and pt responded that it is chalk. This RN clarified that pt stated it is chalk and not drug residue. pt stated no, chalk like a chalkboard Pupils equal and minimally reactive to light. pt drowsy in the bed and per MD, pt was asked if he would like narcan. pt stated no, what are you gonna narcan me for, im just tired. pt resting in bed at this time
--- NOTE | 2021-10-31 04:22 | ED_ITS ---
HPI - General Adult General Chief complaint: Nausea/Vomiting/Diarrhea Stated complaint: COVID +, n/v Time Seen by Provider: 10/31/21 03:00 Source: patient Mode of arrival: ambulatory History of Present Illness HPI narrative: 41-year-old male with known history of IVDA presents stating that he is COVID positive at rehab 5 days ago is been having symptoms of nausea, vomiting, body aches and is also requesting evaluation of bilateral upper extremity abscesses. Patient reports subjective fevers and chills. Related Data Previous Rx's Medication Instructions Recorded cefadroxil 1 gram tablet 1,000 mg PO BID 7 Days #14 tab 02/25/21 doxycycline hyclate 100 mg tablet 100 mg PO Q12H 7 Days #14 tab 02/25/21 cephalexin 500 mg capsule 500 mg PO QID 7 Days #28 cap 10/13/21 doxycycline hyclate 100 mg tablet 100 mg PO Q12H 7 Days #14 tab 10/13/21 ibuprofen 600 mg tablet 600 mg PO Q6H PRN #30 tab 10/13/21 Allergies Allergy/AdvReac Type Severity Reaction Status Date / Time No Known Allergies Allergy Verified 10/31/21 03:16 [No Known Allergies*] Review of Systems Review of Systems: Pertinent positives and negatives as stated in HPI 10 point review of systems is otherwise negative. PMFSH Past Medical History Source: nursing notes reviewed Medical History Patient denies medical problems Social History Social History Use of substances other than those prescribed or required for medical reasons: Yes Substance Use Type: Crack/Cocaine and Heroin Last Used Substance: Days (ago) Advance Directives: No Advance Directives Information Provided: Yes Physical Exam ED Vital Signs: Vital Signs - 24 hr 10/31/21 03:13 10/31/21 03:26 Temperature 98.9 F 97.9 F Pulse Rate 81 71 Respiratory Rate 20 18 Blood Pressure 107/49 L 93/47 L Pulse Oximetry 94 95 BMI result Body Mass Index 25.8 VITAL SIGNS: Reviewed. GENERAL: Well developed, well nourished, in no acute distress. HEAD: Normocephalic/atraumatic EYES: PERRLA, EOMI EARS: Ext canals without abnormality, TMs non-bulging and non-erythematous NOSE: Nares patent bilateral OROPHARYNX: no oral lesions noted, posterior pharynx clear and non-erythematous without noted tonsillar enlargement/erythema/exudates LUNGS: Normal breath sounds. No adventitious sounds or accessory muscle use. SpO2<94> CARDIOVASCULAR: Regular rate and rhythm without noted murmurs, no JVD or lower extremity edema. ABDOMEN: Soft, non-tender, non-distended with bowel sounds. MUSCULOSKELETAL: No tenderness, deformities, or effusions noted on gross inspection. EXTREMITIES: No cyanosis, clubbing or edema, bilateral upper extremity without identified current abscesses. SKIN: Inspection of the skin reveals no rashes NEUROLOGIC: Alert and oriented x 4. Strength and sensation to light touch were grossly intact x 4. Course Course Course Narrative: 41-year-old male with history and clinical presentation consistent with IVDA and COVID testing negative and patient reports viral like symptoms. No evidence to suggest acute cellulitis or abscesses. All investigations reviewed and no acute findings noted when compared to baseline. Patient is neither COVID nor influenza positive. Medical Decision Making Lab Data Result diagrams: 10/31/21 05:04 10/31/21 05:04 Labs: Lab Results 10/31/21 10/31/21 10/31/21 Range/Units 03:26 04:42 05:04 WBC 6.3 (4.8-10.8) X10*3/uL RBC 3.99 L (4.60-5.80) X10*6/uL Hgb 12.2 L (14.0-18.0) g/dl Hct 37.4 L (42.0-52.0) % MCV 93.7 (80.0-98.0) fL MCH 30.6 (27.0-33.0) pg MCHC 32.6 (31.0-36.0) g/dl RDW 13.5 (11.0-16.0) % Plt Count 234 (160-400) X10*3/uL MPV 9.5 (9.4-12.4) fL Immature Gran % (Auto) 0.2 (0.0-0.4) % Neut % (Auto) 53.4 (45-73) % Lymph % (Auto) 27.8 (20-40) % [place]hing % (Auto) 14.9 H (2-11) % Eos % (Auto) 3.2 (0-4) % Baso % (Auto) 0.5 (0-2) % Lymph # (Auto) 1.7 (1.2-4.9) X10*3/uL [place]hing # (Auto) 0.9 (0.1-1.2) X10*3/uL Eos # (Auto) 0.2 (0.0-0.4) X10*3/uL Baso # (Auto) 0.0 (0.0-0.2) X10*3/uL Abs Immat Gran (auto) 0.01 (0.00-0.03) X10*3/uL Absolute Neuts (auto) 3.4 (2.0-8.3) x10*3/uL Absolute Nucleated RBC 0.000 (0.0-0.012) X10*3/uL Nucleated RBC % (auto) 0.0 (0.0-0.2) /100WBC Sodium (135-145) mmol/L Potassium (3.3-5.1) mmol/L Chloride (96-108) mmol/L Carbon Dioxide (22-29) mmol/L Anion Gap (12-20) BUN (9-16) mg/dL Creatinine (0.5-1.4) mg/dL Estim Creat Clear Calc Estimated GFR Random Glucose (60-115) mg/dL Calcium (8.4-10.2) mg/dL Total Bilirubin (0.0-1.0) mg/dL AST (5-37) U/L ALT (0-40) U/L Alkaline Phosphatase (39-117) U/L Total Protein (6.5-8.0) g/dL Albumin (3.5-5.0) g/dL COVID-19 (ANUP) Negative (Negative) COVID-19 Clin Com See Note Influenza Type A (GENIE) Negative (Negative) Influenza Type B (GENIE) Negative (Negative) Influenza A & B Note See Note 10/31/21 Range/Units 05:04 WBC (4.8-10.8) X10*3/uL RBC (4.60-5.80) X10*6/uL Hgb (14.0-18.0) g/dl Hct (42.0-52.0) % MCV (80.0-98.0) fL MCH (27.0-33.0) pg MCHC (31.0-36.0) g/dl RDW (11.0-16.0) % Plt Count (160-400) X10*3/uL MPV (9.4-12.4) fL Immature Gran % (Auto) (0.0-0.4) % Neut % (Auto) (45-73) % Lymph % (Auto) (20-40) % [place]hing % (Auto) (2-11) % Eos % (Auto) (0-4) % Baso % (Auto) (0-2) % Lymph # (Auto) (1.2-4.9) X10*3/uL [place]hing # (Auto) (0.1-1.2) X10*3/uL Eos # (Auto) (0.0-0.4) X10*3/uL Baso # (Auto) (0.0-0.2) X10*3/uL Abs Immat Gran (auto) (0.00-0.03) X10*3/uL Absolute Neuts (auto) (2.0-8.3) x10*3/uL Absolute Nucleated RBC (0.0-0.012) X10*3/uL Nucleated RBC % (auto) (0.0-0.2) /100WBC Sodium 141 (135-145) mmol/L Potassium 3.3 (3.3-5.1) mmol/L Chloride 105 (96-108) mmol/L Carbon Dioxide 28 (22-29) mmol/L Anion Gap 11 L (12-20) BUN 14 (9-16) mg/dL Creatinine 0.97 (0.5-1.4) mg/dL Estim Creat Clear Calc 88.6 Estimated GFR > 60 Random Glucose 133 H D (60-115) mg/dL Calcium 9.1 (8.4-10.2) mg/dL Total Bilirubin 0.5 (0.0-1.0) mg/dL AST 81 H (5-37) U/L ALT 68 H (0-40) U/L Alkaline Phosphatase 104 D (39-117) U/L Total Protein 6.5 (6.5-8.0) g/dL Albumin 3.5 (3.5-5.0) g/dL COVID-19 (ANUP) (Negative) COVID-19 Clin Com Influenza Type A (GENIE) (Negative) Influenza Type B (GENIE) (Negative) Influenza A & B Note Discharge Plan Discharge Clinical Impression: Viral syndrome Patient Disposition: Home, Self-Care Instructions: Viral Syndrome (ED) Additional Instructions: Follow-up with your primary care provider in the next 2-3 days. Return to the ER for worsening symptoms. Prescriptions: No Action doxycycline hyclate 100 mg tablet 100 mg PO Q12H 7 Days Qty: 14 0RF cefadroxil 1 gram tablet 1,000 mg PO BID 7 Days Qty: 14 0RF cephalexin 500 mg capsule 500 mg PO QID 7 Days Qty: 28 0RF doxycycline hyclate 100 mg tablet 100 mg PO Q12H 7 Days Qty: 14 0RF ibuprofen 600 mg tablet 600 mg PO Q6H PRN (Reason: pain) Qty: 30 0RF
[2021-10-31 05:08] LABS: Influenza A Negative (Negative); Influenza B2 Negative (Negative)
[2021-10-31 05:09] LABS: MANUAL DIFF FLAG NO
[2021-10-31 05:10] LABS: Basophils Percent Auto 0.5 % (0-2); Eosinophils Absolute Auto 0.2 X10*3/uL (0.0-0.4); Eosinophils Percent Auto 3.2 % (0-4); Hematocrit 37.4 % (42.0-52.0); Hemoglobin 12.2 g/dl (14.0-18.0); Imm Gran Abs Auto 0.01 X10*3/uL (0.00-0.03); Imm Gran Pct Auto 0.2 % (0.0-0.4); Lymphocytes Absolute Auto 1.7 X10*3/uL (1.2-4.9); Lymphocytes Percent Auto 27.8 % (20-40); Mean Corpuscular HGB Conc 32.6 g/dl (31.0-36.0); Mean Corpuscular Hemoglobin 30.6 pg (27.0-33.0); Mean Corpuscular Volume 93.7 fL (80.0-98.0); Mean Platelet Volume 9.5 fL (9.4-12.4); Monocytes Absolute Auto 0.9 X10*3/uL (0.1-1.2); Monocytes Percent Auto 14.9 % (2-11); Neutrophils Absolute Auto 3.4 x10*3/uL (2.0-8.3); Neutrophils Percent Auto 53.4 % (45-73); Platelet Count 234 X10*3/uL (160-400); Red Blood Count 3.99 X10*6/uL (4.60-5.80); Red Cell Distribution Width 13.5 % (11.0-16.0); White Blood Count 6.3 X10*3/uL (4.8-10.8)
[2021-10-31 05:31] LABS: Alanine Aminotransferase 68 U/L (0-40); Albumin Level 3.5 g/dL (3.5-5.0); Alkaline Phosphatase 104 U/L (39-117); Anion Gap 11 (12-20); Aspartate Amino Transferase 81 U/L (5-37); Bilirubin Total 0.5 mg/dL (0.0-1.0); Blood Urea Nitrogen 14 mg/dL (9-16); Calcium 9.1 mg/dL (8.4-10.2); Carbon Dioxide 28 mmol/L (22-29); Chloride 105 mmol/L (96-108); Creatinine Clr Calc Pharmacy 88.6; Estimated Glomerular Filt Rate > 60; Glucose Random 133 mg/dL (60-115); Potassium 3.3 mmol/L (3.3-5.1); Sodium 141 mmol/L (135-145); Total Protein 6.5 g/dL (6.5-8.0)
--- NOTE | 2021-10-31 06:24 | PC.NURSE ---
pt refusing tylenol and ibuprofen. states he has been taking them with no relief. pt encouraged to see if they will help although does not want to take them. pt sleeping but arousable at this time. states he will be taking a bus home
== END 2021-10-31 06:37 | disposition home or self-care (01) ==
PROVIDERS: Emergency Provider Student in an Organized Health Care Education/Training Program
DX: U07.1 COVID-19 (principal); F11.90 Opioid use, unspecified, uncomplicated; F14.90 Cocaine use, unspecified, uncomplicated; B34.9 Viral infection, unspecified; Z79.899 Other long term (current) drug therapy
CPT/HCPCS: 80053; 85025; 87502; 87635; 99283; 99284

== ENCOUNTER 2021-12-29 17:37 | Emergency (ER) | payer OTHER, SELFPAY | END 2021-12-29 17:50 | disposition left against medical advice (07) | PROVIDERS: Emergency Provider Emergency Medicine | DX: L02.413 Cutaneous abscess of right upper limb (principal) ==

== ENCOUNTER 2022-01-01 11:26 | Emergency (ER) | payer OTHER, SELFPAY ==
[2022-01-01 11:31] VITALS: BP 104/62; PULSE 64; RESP 14; TEMP 36.7; O2SAT 98; BMI 25.2
--- NOTE | 2022-01-01 12:00 | ED_ITS ---
HPI - Skin/Abscess/Foreign Bdy General Chief complaint: Skin/Abscess/Foreign Body Stated complaint: arm pain Time Seen by Provider: 01/01/22 11:59 Source: patient Mode of arrival: ambulatory Limitations: no limitations History of Present Illness HPI narrative: 41 yo male with history of intravenous drug use, on methadone maintenance who continues to use IV drugs presents to the ER for evaluation of bilateral arm pain. He has chronic wounds to the bilateral forearms and continues to inject drugs. He states the last time he injected drugs into the area was about 2 days ago. He denies any drainage from the wounds. He denies any warmth or redness that is new. He denies any fever or chills at home. MD complaint: other (Acute on chronic wounds) Onset (ago): month(s) Tetanus up to date: yes Location: E and RU Severity: moderate Quality: aching Pain Consistency: constant Relieving factors: none Exacerbating factors: none Context: none Associated symptoms: denies other symptoms Treatments prior to arrival: none Related Data Previous Rx's Medication Instructions Recorded cefadroxil 1 gram tablet 1,000 mg PO BID 7 days #14 tabs 02/25/21 doxycycline hyclate 100 mg tablet 100 mg PO Q12H 7 days #14 tabs 02/25/21 cephalexin 500 mg capsule 500 mg PO QID 7 days #28 caps 10/13/21 doxycycline hyclate 100 mg tablet 100 mg PO Q12H 7 days #14 tabs 10/13/21 ibuprofen 600 mg tablet 600 mg PO Q6H PRN pain #30 tabs 10/13/21 cephalexin 500 mg capsule 500 mg PO Q6H 7 days #28 caps 01/01/22 doxycycline hyclate 100 mg tablet 100 mg PO BID 7 days #14 tabs 01/01/22 Allergies Allergy/AdvReac Type Severity Reaction Status Date / Time No Known Allergies Allergy Verified 10/31/21 03:16 [No Known Allergies*] Review of Systems Review of Systems: Constitutional: No Fever, No Chills Cardiovascular: No Chest Pain, No SOB, No Orthopnea, No Edema Respiratory: No Cough, No Sputum, No Wheezing, No dyspnea Gastrointestinal: No Nausea, No Vomiting, No abdominal Pain Musculoskeletal: No joint pain, No Myalgias Skin: + Skin Lesions, No rash Neuro: No Weakness, No Numbness, No Dizziness, No Headache Psych: No Anxiety/Panic, + Depression, NO SI Heme/Lymph: No Bruising, No Lymphadenopathy PMFSH Past Medical History Medical History Patient denies medical problems Social History Social History Substance Use Type: Crack/Cocaine and Heroin Advance Directives: No Advance Directives Information Provided: No Physical Exam Vital Signs: Vital Signs: Last Vital Signs Temp 98.1 F 01/01/22 11:31 Pulse 64 01/01/22 11:31 Resp 14 01/01/22 11:31 BP 104/62 01/01/22 11:31 Pulse Ox 98 01/01/22 11:31 O2 Del Method 01/01/22 11:31 BMI result Body Mass Index 25.2 Appearance: Lethargic male sitting in the chair, arouses to voice. Oriented X3. No acute distress. HEENT: normal inspection CVS: Normal heart rate and rhythm. Pulses normal. Respiratory: No respiratory distress. Skin: Skin warm and dry. Normal skin color. Normal skin turgor. No rashes. Extremities: Bilateral dorsal forearms with chronic appearing wounds with scabbing and yellowish discoloration, anterior forearms with track dubois and scarring bilaterally. no abscess with fluctuance or erythema. Neuro: Oriented X 3. Slow to respond but answers all questions appropriately. Not suicidal. Discharge Plan Discharge Clinical Impression: Wounds, multiple open, arm Patient Disposition: Home, Self-Care Instructions: Wound Infection (ED) Additional Instructions: DO NOT USE IV DRUGS. THEY CAN KILL YOU Take the prescribed antibiotics as directed, complete the entire course Recommend following up with the Wound Clinic for further evaluation and management - name and number below Prescriptions: New cephalexin 500 mg capsule 500 mg PO Q6H 7 Days Qty: 28 0RF doxycycline hyclate 100 mg tablet 100 mg PO BID 7 Days Qty: 14 0RF No Action doxycycline hyclate 100 mg tablet 100 mg PO Q12H 7 Days Qty: 14 0RF cefadroxil 1 gram tablet 1,000 mg PO BID 7 Days Qty: 14 0RF cephalexin 500 mg capsule 500 mg PO QID 7 Days Qty: 28 0RF doxycycline hyclate 100 mg tablet 100 mg PO Q12H 7 Days Qty: 14 0RF ibuprofen 600 mg tablet 600 mg PO Q6H PRN (Reason: pain) Qty: 30 0RF Referrals: [facility] [Outside] (chronic UE wounds due to IVDA)
== END 2022-01-01 13:24 | disposition home or self-care (01) ==
PROVIDERS: Emergency Provider Student in an Organized Health Care Education/Training Program
DX: S41.102A Unspecified open wound of left upper arm, initial encounter (principal); S41.101A Unspecified open wound of right upper arm, initial encounter; X58.XXXA Exposure to other specified factors, initial encounter; F19.90 Other psychoactive substance use, unspecified, uncomplicated; Y93.89 Activity, other specified; Y92.9 Unspecified place or not applicable; Y99.9 Unspecified external cause status
CPT/HCPCS: 99283

== ENCOUNTER 2022-01-03 22:01 | Emergency (ER) | payer OTHER, SELFPAY ==
[2022-01-03 22:07] VITALS: BP 108/69; PULSE 79; RESP 20; TEMP 36.2; O2SAT 99; BMI 25.0
--- NOTE | 2022-01-03 22:37 | ED_ITS ---
HPI - Psych General Chief Complaint: Psychiatric Symptoms Stated Complaint: Crisis Time Seen by Provider: 01/03/22 22:28 Source: patient Mode of arrival: ambulatory Limitations: no limitations History of Present Illness HPI Narrative: 41-year-old male who is currently homeless with a history of polysubstance abuse here with reports of feeling suicidal with plan to jump off the bridge. Patient tells me he is using cocaine and heroin daily. He injects them. He uses more than 1 bundle a day. His last use was just prior to arrival. He denies any homicidal ideations. No hallucinations. Patient reports multiple soft tissue sites on the arms and in the feet that are red and warm. No fevers or chills. Related Data Home Medications Medication Instructions Recorded Confirmed No Known Home Meds 01/03/22 01/03/22 Allergies Allergy/AdvReac Type Severity Reaction Status Date / Time No Known Allergies Allergy Verified 01/03/22 22:11 [No Known Allergies*] Review of Systems Review of Systems: Yes all other systems are reviewed and are negative Constitutional: Constitutional: Reports no additional constitutional complaints, Denies body ache(s), Denies chills, Denies fever(s), Denies headache(s) and Denies weakness Eyes: Eyes: Reports no additional eye complaints and Denies change in vision ENT: Reports system reviewed and no additional complaints, except as documented, Denies dizziness, Denies headache(s), Denies nasal congestion, Denies nasal discharge and Denies neck pain Cardiovascular: Cardiovascular: Reports no additional cardiovascular complaints, Denies chest pain, Denies leg edema and Denies dyspnea Respiratory: Respiratory: Reports no additional respiratory complaints, Denies cough and Denies dyspnea Gastrointestinal: Gastrointestinal: Reports no additional gastrointestinal complaints, Denies abdominal pain, Denies diarrhea, Denies nausea and Denies vomiting Genitourinary: Genitourinary: Denies urinary incontinence Musculoskeletal: Musculoskeletal: Reports no additional musculoskeletal co mplaints, Denies back pain, Denies arthralgias, Denies joint swelling, Denies neck pain, Denies numbness and Denies tingling Integumentary/Breasts: Skin/Breast: Reports system reviewed and no additional complaints, except as docu and Denies rash Neurologic: Reports system reviewed and no additional complaints, except as documented, Denies Abnormal speech present, Denies dizziness, Denies headache(s), Denies numbness, Denies tingling and Denies weakness Psychiatric: Psychiatric: Reports depression and Reports suicidal ideation [facility] Past Medical History Attestation statement: The following information was validated with the patient. Source: old records reviewed and nursing notes reviewed Medical History Patient denies medical problems Social History Social History Substance Use Type: Crack/Cocaine and Heroin Advance Directives: No Advance Directives Information Provided: No Physical Exam Vital Signs: Vital Signs: Last Vital Signs Temp 97.2 F 01/03/22 22:07 Pulse 79 01/03/22 22:07 Resp 20 01/03/22 22:07 BP 108/69 01/03/22 22:07 Pulse Ox 99 01/03/22 22:07 O2 Del Method 01/03/22 22:07 BMI result Body Mass Index 25.0 Const: General: cooperative, healthy appearing, comfortable and no acute distress Orientation/consciousness: patient oriented x3 Limitations: no limitations HEENT: Head: Yes normal to inspection Ears: hearing grossly normal bilater ally General nose exam: Normal external nose present Face and sinus: Yes normal facial exam Mouth: Normal oral and palatal mucosa present Throat: Yes posterior oropharynx normal Eyes: General: appearance normal, both eyes and all related structures Pupils: Equal, round and reactive pupils present Neck: Neck: Yes normal visual inspection Chest: Chest palpation & inspection: normal inspection of the chest Resp: Effort & Inspection: normal respiratory effort Auscultation: clear to auscultation bilaterally Cardio: Rate: regular rate Rhythm: regular rhythm Peripheral pulses: Peripheral pulses 2+ throughout GI: Inspection: Yes normal to inspection Palpation (GI): Soft to palpation and nontender Auscultation: normal bowel sounds Back/Spine/Pelvis: Thoracic/Lumbar Spine: thoracic and lumbar spine normal to inspection Skin: General skin exam: no rashes or lesions noted Neuro: General: patient oriented x3, no focal motor deficits and normal sensation to monofilament Cranial nerves: Yes CN's II-XII intact bilaterally and Yes Equal, round and reactive pupils present Cognition (Neuro): normal cognition Speech: No Abnormal speech present Gait exam (Neuro): Normal gait present Motor exam (neuro): 5/5 motor strength present throughout Extrem: Other: Multiple areas forearms and dorsal aspect of the feet that appear to be injection sites with local erythema, warmth and swelling. General: Yes normal to inspection Course Reevaluation(s) Reevaluation #1: Patient placed in physician pending crisis eval. Time: 02:00 MDM - Psych MDM Narrative Medical decision making narrative: 41-year-old male with a history of IV drug abuse here with reports of suicidal thoughts. No concern for acute ingestion or trauma. Patient does have multiple soft tissue areas of swelling and redness and will require some oral antibiotics. He has no fever or concern for systemic infection. He does not want us to draw labs on him as he is a difficult stick. Will start doxycycline. Will obtain COVID screen, drug screen and crisis consultation Medical Records Attestation: I reviewed the patient's medical records. Lab Data Attestation: I reviewed the patient's lab results. Labs: Lab Results 01/03/22 Range/Units 22:43 COVID-19 ([facility]) Negative (Negative) COVID-19 Clin Com See Note Discharge Plan Discharge Clinical Impression: Suicidal ideation, Wounds, multiple open, arm, Polysubstance abuse Patient Disposition: Still a Patient Prescriptions: No Action No Known Home Meds
[2022-01-03 23:04] LABS: COVID-19 Test Negative (Negative)
--- NOTE | 2022-01-04 07:17 | PC.NURSE ---
Patient slept through the night, no distress observed/reported, BHN assessed the patient disposition is pending, RISHI f/u, patient hands are swollen from IV drug use, patient is started on doxy for treatment, VSS, behavior appropriate, will continue to monitor.
[2022-01-04] MEDS: methADONE HCl 20 MG/2 ML ORAL.CONC 65 MG PO (09:47)
--- NOTE | 2022-01-04 10:00 | PC.NURSE ---
METHADONE DOSE VERIFIED BY SUZANNA FROM CARE TEAM. MEDS GIVEN DOCUMENTED. SOME ASSESSMENTS NOT DONE AT THIS TIME, PT SLEEPING. WILL COMPLETE ASSESSMENTS WHEN PT WAKES UP. ROOM CHANGED TO [facility]. NO ISSUES OBSERVED/REPORTED.
--- NOTE | 2022-01-04 10:13 | MHC.RECOVSUP ---
Recovery Support note: This law writer assisted patient's RN in confirming methadone dose. Aura at [facility] reports patient dosed on 01/03 and received 65mg. Clinic is closed tomorrow and patient will need to return to the ED to dose if he is discharged today. RN aware.
[2022-01-04] MEDS: Ondansetron ODT 4 MG TAB.RAPDIS TRANSLINGU (13:02)
--- NOTE | 2022-01-04 13:45 | PC.NURSE ---
PT SEEN BY N CLINICIAN. NO DISPOSITION AT THIS TIME. PT SLEEPING IN CHAIR IN THE COMMON AREA. NO ISSUES OBSERVED/REPORTED.
--- NOTE | 2022-01-04 16:54 | PC.NURSE ---
PT REFUSED TO HAVE VITALS DONE. MULTIPLE ATTEMPTS MADE.
--- NOTE | 2022-01-05 06:34 | PC.NURSE ---
Patient slept through the night, no distress observed/reported, behavior non concerning, disposition per N is detox bed search, VSS, medication compliant, will continue to monitor.
[2022-01-05 06:37] VITALS: BP 112/64; PULSE 73; RESP 18; O2SAT 98
[2022-01-05 07:33] VITALS: BP 135/67; PULSE 62; RESP 15; TEMP 36.4; O2SAT 98
[2022-01-05] MEDS: methADONE HCl 20 MG/2 ML ORAL.CONC 65 MG PO (13:32)
[2022-01-05 13:52] LABS: Appearance Urine CLOUDY; Color Urine YELLOW; Glucose Urine UA NEG (NEG); Leukocyte Esterase Urine NEG (NEG); Nitrite Urine NEG (NEG); Urine Blood NEG (NEG); Urine Ketones 40 MG/DL (NEG); Urine Protein TRACE MG/DL (NEG-TRACE)
[2022-01-05 14:01] LABS: Amphetamine Screen Urine Not Detected (Not Detect); Barbiturates, Urine Not Detected (Not Detect); Benzodiazepines Screen Urine Not Detected (Not Detect); Cannabinoid Screen Urine POSITIVE (Not Detect); Cocaine Screen Urine POSITIVE (Not Detect); Fentanyl, urine POSITIVE (Not Detect); Opiate Screen Urine POSITIVE (Not Detect); Phencyclidine Screen Urine Not Detected (Not Detect)
--- NOTE | 2022-01-05 16:01 | MHC.CARE ---
CARE Team met with patient to create a discharge plan, he was cleared by [facility] for detox but the detox staf felt he may be too acute and need inpatient psychiatric treatment first. Patient was resting but woke easily to discuss his disposition, he said that he does not need or want to be on a psychiatric unit and wants to go to detox. Reported that he did not want to be discharged to the streets so he said he was suicidal and that he was hearing voices. At this time he firmly denied having suicidal thoughts, plan or intention, said he has never hallucinated or attempted suicide and has never been hospitalized on a psychiatric unit; there are not records of mental health treatment here. Patient did appear help seeking, stated he is desperate to stop using, has familial or community supports left. Plan of care discussed with ED provider, HARESH Villalba and supervisor records change Lesly León [facility] who are in agreement that the most appropriate disposition for patient is detox
--- NOTE | 2022-01-05 18:30 | MHC.CARE ---
[facility]is [facility] unable to accommodate patient today, said he is appropriate for detox, they have his information and if he calls tomorrow likely can go. Arrangements were made for patient to stay at the [facility] ([facility] [place] in [place]) tonight, he can use their supports to call the detox in the morning.
== END 2022-01-05 18:49 ==
PROVIDERS: Physician Assistant Medical; Emergency Provider Emergency Medicine
DX: R45.851 Suicidal ideations (principal); F19.10 Other psychoactive substance abuse, uncomplicated; S51.802A Unspecified open wound of left forearm, initial encounter; S51.801A Unspecified open wound of right forearm, initial encounter; X58.XXXA Exposure to other specified factors, initial encounter; L03.116 Cellulitis of left lower limb; L03.115 Cellulitis of right lower limb; L03.114 Cellulitis of left upper limb; L03.113 Cellulitis of right upper limb; Z20.822 Contact with and (suspected) exposure to COVID-19; Y93.9 Activity, unspecified; Y92.9 Unspecified place or not applicable; Y99.9 Unspecified external cause status
CPT/HCPCS: 80307; 81003; 87635; 99284; 99285

== ENCOUNTER 2022-01-22 17:54 | Emergency (ER) | payer OTHER, SELFPAY ==
[2022-01-22 18:00] VITALS: BP 122/78; PULSE 87; RESP 20; TEMP 37.7; O2SAT 97; BMI 25.0
--- NOTE | 2022-01-22 22:23 | ED_ITS ---
HPI - Dental/Oral General Chief complaint: Dental/Oral Stated complaint: tooth pain Time Seen by Provider: 01/22/22 22:19 Source: patient Mode of arrival: ambulatory History of Present Illness HPI Narrative: 41-year-old male presents from [facility] where he is currently undergoing a program and states that for the past couple of days he has had increasing swelling at the right lower jaw without associated difficulty breathing or swallowing and denies any fevers or chills. Related Data Home Medications Medication Instructions Recorded Confirmed methadone 10 mg/mL oral 65 mg PO DAILY 01/04/22 01/04/22 concentrate (Methadone Intensol) Previous Rx's Medication Instructions Recorded amoxicillin 875 mg-potassium 1 tab PO Q12H 7 days #14 tabs 01/22/22 clavulanate 125 mg tablet ketorolac 10 mg tablet 10 mg PO Q6H PRN pain 5 days #20 01/22/22 tabs Allergies Allergy/AdvReac Type Severity Reaction Status Date / Time No Known Allergies Allergy Verified 01/03/22 22:11 [No Known Allergies*] Review of Systems Review of Systems: Pertinent positives and negatives as stated in HPI 10 point review of systems is otherwise negative. PMFSH Past Medical History Source: nursing notes reviewed Medical History Patient denies medical problems Social History Social History Substance Use Type: Crack/Cocaine and Heroin Advance Directives: No Advance Directives Information Provided: No Physical Exam Vital Signs: Vital Signs: Last Vital Signs Temp 99.8 F 01/22/22 18:00 Pulse 87 01/22/22 18:00 Resp 20 01/22/22 18:00 BP 122/78 01/22/22 18:00 Pulse Ox 97 01/22/22 18:00 O2 Del Method 01/22/22 18:00 BMI result Body Mass Index 25.0 VITAL SIGNS: Reviewed. GENERAL: Well developed, well nourished, in no acute distress. HEAD: Normocephalic/atraumatic EYES: PERRLA, EOMI EARS: Ext canals without abnormality OROPHARYNX: no oral lesions noted, posterior pharynx clear, multiple dental caries, appears to be abscess at the right, anterior, lower jaw without fluctuance but noted elevation of the gingiva no specific pocket infection noted to be available for draining, no trismus NECK: Supple, no adenopathy LUNGS: Normal breath sounds. No adventitious sounds or accessory muscle use. SpO2<97> CARDIOVASCULAR: Regular rate and rhythm without noted murmurs ABDOMEN: Soft, non-tender, non-distended with bowel sounds. MUSCULOSKELETAL: No tenderness, deformities, or effusions noted on gross inspection. EXTREMITIES: No cyanosis, clubbing or edema. SKIN: Inspection of the skin reveals no rashes NEUROLOGIC: Alert and oriented x 4. Strength and sensation to light touch were grossly intact x 4. Course Course Course Narrative: 41-year-old male with history and clinical presentation most consistent with dental abscess without evidence of Bunny's, dysphagia, dyspnea and no fluctuant mass identified for drainage, patient received both pain medication as well as initial antibiotics here in the emergency room and was discharged in stable condition with instructions the patient should follow up with dentist within next 1-2 days, complete the entire course of antibiotics and received a prescription for these antibiotics as well as for pain medications. Discharge Plan Discharge Clinical Impression: Dental abscess Patient Disposition: Home, Self-Care Instructions: Dental Abscess (ED) Additional Instructions: 1. Complete the entire course of antibiotics as prescribed. Apply warm compresses to your jaw, 3 to 4 times a day. 2. Tylenol 1000 mg, orally, every 6 hours as needed for pain control. Do not exceed 4000 mg within 24 hours. 3. Follow-up with a dentist in the next 1-2 days. Return to the ER for worsening symptoms. Prescriptions: New amoxicillin-pot clavulanate 875-125 mg tablet 1 tab PO Q12H 7 Days Qty: 14 0RF ketorolac 10 mg tablet 10 mg PO Q6H PRN (Reason: pain) 5 Days Qty: 20 0RF Rx Instructions: Patient received Toradol in the emergency room. No Action methadone [Methadone Intensol] 10 mg/mL Concentrate 65 mg PO DAILY Referrals: [facility] [Primary Care Provider] -
[2022-01-22] MEDS: Acetaminophen 325 MG TABLET 975 MG PO (22:36)
[2022-01-22] MEDS: Amoxicillin/Potassium Clav 875 MG TABLET PO (22:37)
[2022-01-22] MEDS: Ketorolac Tromethamine 15 MG/ML VIAL IM (22:43)
== END 2022-01-22 22:57 | disposition home or self-care (01) ==
PROVIDERS: Emergency Provider Student in an Organized Health Care Education/Training Program
DX: K04.7 Periapical abscess without sinus (principal); F11.90 Opioid use, unspecified, uncomplicated; F14.90 Cocaine use, unspecified, uncomplicated
CPT/HCPCS: 96372; 99283; 99284; J1885

== ENCOUNTER 2024-04-13 05:14 | Emergency (ER) | payer OTHER, SELFPAY ==
[2024-04-13 05:20] VITALS: BP 118/78; PULSE 87; RESP 17; TEMP 36.9; O2SAT 98; BMI 23.5
[2024-04-13 06:45] LABS: MANUAL DIFF FLAG NO
[2024-04-13 06:48] LABS: Appearance Urine Clear; Color Urine Dark Yellow; Glucose Urine UA Negative (Negative); Leukocyte Esterase Urine Trace (Negative); Nitrite Urine Negative (Negative); PH 6.5 (5.0-9.0); Specific Gravity - Urine 1.025 (1.005-1.025); UMIC TRIGGER UA YES; Urine Blood Negative (Negative); Urine Ketones 15 mg/dL (Negative); Urine Protein Trace mg/dL (Neg-Trace)
[2024-04-13 06:53] LABS: Bacteria Urine None Seen (None Seen); Hyaline Casts Urine 0-2 /LPF (0-2); RBC Urine 0-2 /HPF (0-2); Squamous Epithelial Cell Urine 0-2 /HPF (0-2); WBC Urine 0-5 /HPF (0-5)
[2024-04-13 06:57] LABS: Amphetamine Screen Urine Not Detected (Not Detect); Barbiturates, Urine Not Detected (Not Detect); Benzodiazepines Screen Urine Not Detected (Not Detect); Buprenorphine Scr Positive (Not Detect); Cannabinoid Screen Urine POSITIVE (Not Detect); Cocaine Screen Urine POSITIVE (Not Detect); Fentanyl, urine POSITIVE (Not Detect); Methadone Screen, Urine Not Detected (Not Detect); Opiate Screen Urine POSITIVE (Not Detect); Oxycodone Screen Urine Not Detected (Not Detect); Phencyclidine Screen Urine Not Detected (Not Detect)
[2024-04-13 07:00] LABS: Basophils Absolute Auto 0.1 X10*3/uL (0.0-0.2); Basophils Percent Auto 0.9 % (0-2); Eosinophils Absolute Auto 0.1 X10*3/uL (0.0-0.4); Eosinophils Percent Auto 1.2 % (0-4); Hematocrit 44.8 % (42.0-52.0); Hemoglobin 15.2 g/dl (14.0-18.0); Imm Gran Abs Auto 0.02 X10*3/uL (0.00-0.03); Imm Gran Pct Auto 0.3 % (0.0-0.4); Lymphocytes Absolute Auto 1.9 X10*3/uL (1.2-4.9); Lymphocytes Percent Auto 24.5 % (20-40); Mean Corpuscular HGB Conc 33.9 g/dl (31.0-36.0); Mean Corpuscular Hemoglobin 32.3 pg (27.0-33.0); Mean Corpuscular Volume 95.3 fL (80.0-98.0); Mean Platelet Volume 10.3 fL (9.4-12.4); Monocytes Absolute Auto 0.6 X10*3/uL (0.1-1.2); Monocytes Percent Auto 7.4 % (2-11); Neutrophils Absolute Auto 5.1 x10*3/uL (2.0-8.3); Neutrophils Percent Auto 65.7 % (45-73); Platelet Count 145 X10*3/uL (160-400); Red Cell Distribution Width 12.5 % (11.0-16.0); White Blood Count 7.7 X10*3/uL (4.8-10.8)
[2024-04-13 07:04] LABS: Alanine Aminotransferase 24 U/L (0-40); Albumin Level 4.6 g/dL (3.5-5.0); Alkaline Phosphatase 79 U/L (39-117); Anion Gap 14 (12-20); Aspartate Amino Transferase 50 U/L (5-37); Bilirubin Total 1.4 mg/dL (0.0-1.0); Blood Urea Nitrogen 14 mg/dL (9-16); Calcium 10.1 mg/dL (8.4-10.2); Carbon Dioxide 23 mmol/L (22-29); Chloride 104 mmol/L (96-108); Creatinine Clr Calc Pharmacy 103.8; Estimated Glomerular Filt Rate > 60; Ethanol < 10 mg/dL; Glucose Random 114 mg/dL (60-115); Potassium 4.3 mmol/L (3.3-5.1); Sodium 137 mmol/L (135-145); Total Protein 8.6 g/dL (6.5-8.0)
--- NOTE | 2024-04-13 07:33 | PC.NURSE ---
Assumed care of patient at 0645, patient appears to be in no apparent distress this am, calm and cooperative, sitting in common area. Continue plan of care for CARE team assessment this am
[2024-04-13 07:34] VITALS: RESP 14
--- NOTE | 2024-04-13 08:32 | W.ED.CONS.HO ---
Consult Details Consult Details: Patient seen by Dr. Long paper chart done. Was seen by care team offered detox services. Does not want anything. We will send home.
[2024-04-13 08:56] VITALS: BP 108/77; PULSE 74; RESP 12; TEMP 37; O2SAT 99
== END 2024-04-13 09:02 | disposition home or self-care (01) ==
PROVIDERS: Emergency Provider Emergency Medicine
DX: F19.10 Other psychoactive substance abuse, uncomplicated (principal); Z79.899 Other long term (current) drug therapy; Z51.81 Encounter for therapeutic drug level monitoring
CPT/HCPCS: 36415; 80053; 80307; 81001; 85025; 99284; S9485

== ENCOUNTER → 2025-01-20 02:04 | Outpatient (BNV) | payer OTHER, SELFPAY | PROVIDERS: Emergency Provider Emergency Medicine; PCP Nurse Practitioner Family; Visit Provider Radiology Diagnostic Radiology | DX: M25.572 Pain in left ankle and joints of left foot (principal) | CPT/HCPCS: 73610 ==

== ENCOUNTER 2025-01-20 02:47 | Emergency (ER) | payer OTHER, SELFPAY ==
--- NOTE | ~2025-01-20 | XR_ITS ---
CLINICAL HISTORY: pain 3 views left ankle Comparison: None Findings: There is no fracture or dislocation. Joint spaces appear normal. Impression: Unremarkable left ankle radiographs. This document has been electronically signed by: Bravo Worley MD on 01/20/2025 04:13:16
[2025-01-20 02:50] VITALS: BP 127/83; PULSE 89; RESP 16; TEMP 37; O2SAT 95; BMI 22.2
--- OUTSIDE RECORDS SUMMARY | 2025-01-20 03:20 | XMS_ITS | Clinical Summary ---
Author Organization [facility] [address] [facility] Address [address] [place] [address] Phone Care Team Providers Care Scow Captain Name Role Phone Unavailable Primary Care Provider Unavailabl e Social History Tobacco Use Types Packs/Day Years Used Date Smoking Tobacco: Never Assessed Sex and Gender Information Value Date Recorded Sex Assigned at Not on file Legal Sex Male 4:47 PM EST Gender Identity Not on file Sexual Orientation Not on file Plan of Treatment Health Maintenance Due Date Last Done Comments DTaP,Tdap,and Td Vaccines (1 - Tdap) 1997 Hepatitis B Vaccines (1 of 3 - 19+ 3-dose series) 1997 COVID-19 Vaccine (2023-2 5 season) 2024 Cholesterol Screening (Lipid Panel) 05/12/2024 Colorectal Cancer Screening: Colonoscopy 05/12/2024 Depression Screening 05/12/2024 HIV Screening 05/12/2024 Hepatitis C Screening 05/12/2024 Social Influencers of Health Screening 05/12/2024 Influenza Vaccine (Season Ended) 2025 HIB Vaccines Aged Out No longer eligi ble based on patient's age to complete this topic HPV Vaccines Aged Out No longer eligi ble based on patient's age to complete this topic Hepatitis A Vaccines Aged Out No long er eligible based on patient's age to complete this topic IPV Vaccines Aged Out No longer eligi ble based on patient's age to complete this topic MMR Vaccines Aged Out No longer eligi ble based on patient's age to complete this topic Meningococcal ACWY Vaccine Aged Out N o longer eligible based on patient's age to complete this topic Meningococcal B Vaccine Aged Out No l onger eligible based on patient's age to complete this topic Pneumococcal Vaccine: Pediat rics (0 to 5 Years) and At-Risk Patients (6 to 64 Years) Aged Out No longer eligible b ased on patient's age to complete this topic RSV Immunization Patients Un jessie 20 months Aged Out No longer eligible b ased on patient's age to complete this topic Varicella Vaccines Aged Out No longer eligible based on patient's age to complete this topic Insurance MEDICAID - [place]
--- OUTSIDE RECORDS SUMMARY | 2025-01-20 03:20 | XMS_ITS ---
Author Organization [facility] Care Team Providers Care Product Inspection Supervisor Name Role Phone Jluis Grady Unavailable Unavailable Ayah, Rachelle Unavailable Unavailable Allergies and adverse reactions No Known Allergies Care Team Name Role Address Phone Organization Dates Jluis Grady PCP [address] [facility] [address], [place], [address], [facility] (Office): : [facility] 09/24/2021 - 10/03/2021 Rachelle Gyawali [address] [place] [address], [id number], [facility] (Office): [facility] 09/24/2021 - 10/03/2021 Immunizations Immunization Status Vaccine Details Vaccine Code CodeSystem Date Notes Pneumovax Booster cancelled pneumococcal polysaccharide vaccine, 23 valent 33 CVX created date: 09/25/2021 consent date: 09/25/2021 Tdap (Tetanus/ Diptheria) completed tetanus and diphtheria toxoids, adsorbed, preservative free, for adult use (5 Lf of tetanus toxoid and 2 Lf of diphtheria toxoid) 113 CVX created date: 09/24/2021 administere d date: 05/29/2017 Prevnar 13 cancelled pneumococcal conjugate vaccine, 13 valent 133 CVX created date: 09/25/2021 consent date: 09/25/2021 SARS-COV-2 (COVID-19) completed SARS-COV-2 (COVID-19) vaccine, vector non-replicating, recombinant spike protein-Ad26, preservative free, 0.5 mL Step 1 of Multi-step with next step required 212 CVX created date: 09/24/2021 administere d date: 10/21/2020 Mental Status Section Date Assessment Total Score Description 10/03/2021 BIMS 15 cognitively int act CAM 0 No delirium ind icated PHQ-9 00 10/01/2021 BIMS 15 cognitively int act CAM 0 No delirium ind icated PHQ-9 00 Problems Problem # Description Date of onset Resolved Date Code CodeSystem Concern Status 1 ALCOHOL ABUSE, UNCOMPLICATED 09/25/[address] active 2 BIPOLAR DISORDER, CURRENT EPISODE DEPRESSED, MILD 09/25/[address] active 3 CELLULITIS OF LEFT UPPER LIMB 09/25/[address] active 4 CELLULITIS OF RIGHT UPPER LIMB 09/25/[id number] active 5 CHRONIC VIRAL HEPATITIS C 09/25/[address] active 6 DYSPHAGIA, ORAL PHASE 09/25/[address] active 7 FEVER, UNSPECIFIED 09/25/[address] active 8 GENERALIZED ANXIETY DISORDER 09/25/[address] active 9 MAJOR DEPRESSIVE DISORDER, RECURRENT, MODERATE 09/25/[address] active 10 METHICILLIN RESISTANT STAPHYLOCOCCUS AUREUS INFECTION THE CAUSE OF DISEASES CLASSIFIED ELSEWHERE 09/25/[address] active 11 OPIOID DEPENDENCE WITH WITHDRAWAL 09/25/[address] active 12 OTHER PSYCHOACTIVE SUBSTANCE ABUSE, UNCOMPLICATED 09/25/[address] active 13 UNSTEADINESS ON FEET 09/25/[address] active 14 WEAKNESS 09/25/[address] active Reason for Referral No Reasons for Referral Entered Social History Social History Observation Description Start Date End Date Code Code System Current Smoking Status Tobacco smoking consumption unknown 584146592 SNOMED CT Sex Assigned At Male 1980 26050-6 LOINC Gender Identity Vital Signs Code Code System Vitals Name Values and Units Timing Information 15319-1 LOINC Pain Level Value=0.0 10/03/2021 9279-1 [facility] Respiratory Rate Value=18.0 Units=/m in 10/03/2021 8462-4 [facility] Blood Pressure-Diastolic Value=72 Un its=mmHg 10/03/2021 8480-6 [facility] Blood Pressure-Systolic Sgiqx=254 Un its=mmHg 10/03/2021 8310-5 [facility] Body Temperature Value=97.6 Units= F 10/03/2021 8867-4 [facility] Heart rate Value=78.0 Units=/min 37243-2 [facility] O2 % BldC Oximetry Value=96.0 Units= % 10/03/2021 8302-2 [facility] Height Value=67.0 Units=Inches 09/28/2021 95895-2 [facility] Weight Fqphb=875.0 Units=Lbs 04/2022
[2025-01-20 03:55] VITALS: BP 105/63; PULSE 50; RESP 16; TEMP 36.8; O2SAT 97
--- NOTE | 2025-01-20 04:14 | ED_ITS ---
HPI - General Adult General Chief complaint: Extremity Injury, Lower Stated complaint: lwr back pain/left ft swollen Time Seen by Provider: 01/20/25 04:13 History of Present Illness ED Provider: Abena TREVIZO narrative: The patient is a 44-year-old male who says that he has a history of IV drug abuse. He says that in the past he has had an infection in his back for which he required long-term IV antibiotics. Despite this the patient continues to use IV drugs. He says that about a week ago he tried to inject himself in the left foot. Since then he has had pain in the left foot just below the ankle. He has also had pain in his lower back. He says he has a sense of numbness across his lower back. He has not had a fever. He says he has never had a heart infection. Related Data Home Medications ?Medication ?Instructions ?Recorded ?Confirmed No Known Home Meds 04/13/24 04/13/24 Allergies Allergy/AdvReac Type Severity Reaction Status Date / Time No Known Allergies (No Known Allergy Verified 01/20/25 02:51 Allergies*) Review of Systems Review of Systems: Yes all other systems are reviewed and are negative PMFSH Past Medical History Medical History Patient denies medical problems Social History Social History Smoked in Last 30 Days: No Use of substances other than those prescribed or required for medical reasons: Yes Substance Use Type: Crack/Cocaine and Heroin Substance Use Frequency: Chronic Longstanding Last Used Substance: Days (ago) Advance Directives: No Advance Directives Information Provided: No Do you have a plan to hurt others: No Plan Physical Exam ED Vital Signs: Vital Signs - 24 hr 01/20/25 02:50 01/20/25 03:55 Temperature 98.6 F 98.3 F Pulse Rate 89 50 Respiratory Rate 16 16 Blood Pressure 127/83 105/63 Pulse Oximetry 95 97 Oxygen Delivery Method Room Air Room Air BMI result Body Mass Index 22.2 Const Other: The patient is a somewhat unkempt man who was awake and alert and who does not appear in obvious distress. He was sleeping when I first walked into the room. He awoke easily with verbal stimulation. HENMT Other: Face is symmetrical, mucous membranes moist Eyes Other: Pupils are round equal, conjunctivae are clear, extraocular movements intact Neck Neck: Yes normal visual inspection, Yes full ROM and Yes no lymphadenopathy Resp Effort & Inspection: normal respiratory effort Auscultation: clear to auscultation bilaterally Cardio Other: No murmur Rate: regular rate Rhythm: regular rhythm Heart sounds: S1 normal heart sound present and S2 normal heart sound present GI Other: Abdomen is soft and nontender Skin Other: The patient indicates that he has pain in his left foot at the medial aspect of the foot just below the medial malleolus. The skin in his area is unremarkable. There was no erythema or swelling. I think the appearance of the foot in the ankle are similar to the appearance of the other foot. No erythema. No bruising. No soft tissue swelling. Neuro Other: The patient was sleeping when I 1st encountered him. He awoke easily to a normal mental status. Cranial nerves are grossly intact. He moves his extremities symmetrically and appropriately. Extrem Other: The patient has some tenderness at the medial aspect of the left foot but I do not appreciate any soft tissue swelling or erythema. He is able to move the ankle. There was no edema. No calf swelling or tenderness. Medical Decision Making Medical Decision Making [facility] Narrative: The patient is a 44-year-old male who is an IV drug user. He presented complaining of left ankle pain that he attributed to a poor effort at injecting himself. This was 1 week ago. Objectively the patient does not have any apparent signs of infection or other acute problem. The patient reports a history of having had a back or spine infection related to previous IV drug use but denies any history of endocarditis. Clinically the patient did not seem septic. I explained to the patient we could do some blood work to see if there was any likelihood of any significant infectious process apparent. It was my impression that the patient had agreed to this plan but he subsequently walked out of the emergency room before any blood was drawn. He therefore left without completing treatment. Discharge Plan Discharge Clinical Impression: Left leg pain, Intravenous drug user Patient Disposition: Left W/O Completing Treatment Prescriptions: No Action No Known Home Meds Discharge Date/Time: 01/20/25 05:40
--- NOTE | 2025-01-20 05:38 | PC.NURSE ---
this RN in triage room at this time, pt quickly walked through triage room stating im not waiting for this fucking shit , opened triage door and ran out of ed. Primary RN, butt presser and provider aware.
== END 2025-01-20 05:40 | disposition left against medical advice (07) ==
PROVIDERS: Emergency Provider Emergency Medicine; PCP Nurse Practitioner Family
DX: M54.50 Low back pain, unspecified (principal); F19.90 Other psychoactive substance use, unspecified, uncomplicated; Z53.21 Procedure and treatment not carried out due to patient leaving prior to being seen by health care provider
CPT/HCPCS: 73610; 99283; 99284